=== PATIENT | female | born 1985 | race Caucasian/White ===

== ENCOUNTER 2020-02-27 20:20 | Inpatient (IN) | payer BC ==
[~2020-02-27] VITALS: Ht 170.2 cm; Wt 86.2 kg
[2020-02-27 20:20] VITALS: BP 108/52
[2020-02-27] MEDS ORDERED: BETAMETH ACET/BETAMETH NA PH 30 MG/5 ML VIAL IM ONE (21:15)
[2020-02-27 21:51] LABS: APPEARANCE,URINE SL CLOUDY (CLEAR); BILIRUBIN,URINE NEGATIVE (NEGATIVE); BLOOD, URINE 3+ (NEGATIVE); COLOR,URINE AMBER (YELLOW); LEUKOCYTE ESTERASE ,URINE 1+ (NEGATIVE); NITRITE, URINE NEGATIVE (NEGATIVE); UGLUCOSE NEGATIVE (NEGATIVE)
[2020-02-27 21:56] LABS: BASOPHILS % (AUTO) 0.3 % (0.0-2.0); EOSINOPHILS # (AUTO) 0.1 K/uL (0-0.4); EOSINOPHILS % (AUTO) 1.1 % (0.0-4.0); HEMATOCRIT 34.3 % (36-48); HEMOGLOBIN 11.4 g/dL (12.0-16.0); LYMPHOCYTES # (AUTO) 1.5 K/uL (2.5-16.5); LYMPHOCYTES % (AUTO) 20.4 % (20.5-51.1); MEAN CORPUSCULAR HEMOGLOBIN 31 pg (27-31); MEAN CORPUSCULAR HGB CONC 33 g/dL (33-37); MEAN CORPUSCULAR VOLUME 92.1 fL (80-94); MONOCYTES # (AUTO) 0.5 K/uL (0.8-1.0); MONOCYTES % (AUTO) 6.8 % (1.7-9.3); NEUTROPHILS # (AUTO) 5.4 K/uL (1.8-7.7); NEUTROPHILS % (AUTO) 71.4 % (42.2-75.2); PLATELET COUNT (AUTO) 199 K/uL (140-450); RED BLOOD CELL COUNT(AUTO) 3.73 MIL/uL (4.20-5.40); WHITE BLOOD COUNT (AUTO) 7.6 K/uL (4.8-10.8)
[2020-02-27] MEDS ORDERED: BETAMETH ACET/BETAMETH NA PH 30 MG/5 ML VIAL IM SCH (22:20)
[2020-02-27 22:24] LABS: RBC,URINE 20-50 /HPF (0-5)
[2020-02-27 22:39] LABS: ALBUMIN 2.6 g/dL (3.4-5.0); ANION GAP 13.2 (8-16); CARBON DIOXIDE 26.1 mmol/L (21-32); CREATININE 0.7 mg/dL (0.6-1.3); POTASSIUM 3.3 mmol/L (3.5-5.1); TOTAL BILIRUBIN 0.2 mg/dL (0.0-1.0)
[2020-02-28 00:20] LABS: PROTHROMBIN TIME 9.7 secs (10.8-13.4)
--- NOTE | 2020-02-28 08:21 | NUR ---
PATIENT HAS BEEN SCREENED AND CATEGORIZED LOW NUTRITION RISK. PATIENT WILL BE SEEN WITHIN 7 DAYS OF ADMISSION. 03/05/[address]
[2020-02-28] MEDS ORDERED: PNV11TAB3 PO (23:26)
== END 2020-02-28 12:30 | disposition home or self-care (01) | DRG 833 ==
LOC: OBSVTOIN 20:20 → MLD 20:20
PROVIDERS: ADMIT Obstetrics & Gynecology; ATTEND Obstetrics & Gynecology
DX: O46.92 Antepartum hemorrhage, unspecified, second trimester (principal); Z3A.24 24 weeks gestation of pregnancy
CPT/HCPCS: 36415; 76805; 76817; 80053; 81001; 85025; 85384; 85610; 85730; 86886; 86900; 86901; 87086; J0696; J0702; J7060; Q0092

== ENCOUNTER 2020-02-28 23:03 | Observation (INO) | payer BC ==
[~2020-02-28] VITALS: Ht 170.2 cm; Wt 86.2 kg
[2020-02-28] MEDS ORDERED: BETAMETH ACET/BETAMETH NA PH 30 MG/5 ML VIAL IM SCH (23:15)
[2020-02-28] MEDS ORDERED: BETAMETH ACET/BETAMETH NA PH 30 MG/5 ML VIAL IM ONE (23:19)
[2020-02-28] MEDS ORDERED: PNV11TAB3 PO (23:26)
[2020-02-29 00:14] VITALS: BP 97/54
== END 2020-02-29 00:05 | disposition home or self-care (01) ==
LOC: MLD 23:03
PROVIDERS: ADMIT Obstetrics & Gynecology; ATTEND Obstetrics & Gynecology
DX: O46.92 Antepartum hemorrhage, unspecified, second trimester (principal); Z3A.24 24 weeks gestation of pregnancy
CPT/HCPCS: 96372; G0378; J0702

== ENCOUNTER 2020-07-02 23:35 | Emergency (ER) | payer BC ==
[~2020-07-02] VITALS: Ht 172.7 cm; Wt 81.4 kg
[~2020-07-02 23:35] MED LIST: PNV11TAB3 PO
[2020-07-02 23:45] VITALS: BP 105/63
--- NOTE | 2020-07-03 00:02 | NUR ---
34 Y/O FEMALE BIB SELF FOR C/O FEVER 104.0 AT HOME. PT POST ON 06/20/20 AND HAS 3DEGREE VAGINAL TEAR. PT STATES VAGINAL BURNING PAIN 01/28 AND BEGAN HAVING FEVER TODAY. CURRENT TEMP 100.0 ORAL. PT TOOK ADVIL @ 2130 WITH SOME RELIEF. DENIES N/V, COUGH OR SOB. MEDHX: DENIES NKA
[2020-07-03] MEDS ORDERED: NACL 0.9% 1,000 ML IV ONE (00:05)
--- NOTE | 2020-07-03 00:07 | NUR ---
ERMD AT BEDSIDE EVALUATING PT
[2020-07-03 00:17] LABS: APPEARANCE,URINE SL CLOUDY (CLEAR); BILIRUBIN,URINE NEGATIVE (NEGATIVE); BLOOD, URINE 3+ (NEGATIVE); COLOR,URINE YELLOW (YELLOW); LEUKOCYTE ESTERASE ,URINE 3+ (NEGATIVE); NITRITE, URINE NEGATIVE (NEGATIVE); UGLUCOSE NEGATIVE (NEGATIVE)
--- NOTE | 2020-07-03 00:31 | NUR ---
Pelvic exam performed by DR JIMENEZ with MARIBEL MORALES at bedside for entire examination. Patient tolerated procedure WELL. Patient assisted to position of comfort after examination.
[2020-07-03 00:32] LABS: RBC,URINE 11-20 (MOD) /HPF (0-5); WBC,URINE 60-80 /HPF (0-5)
[2020-07-03] MEDS ORDERED: KETOROLAC 30 MG/ML VIAL IVP ONE (00:35)
[2020-07-03] MEDS ORDERED: cefTRIAXone 1,000 MG VIAL ONE (00:35)
--- NOTE | 2020-07-03 01:38 | NUR ---
rocephin infusion finished. pt VSS. no needs at this time.
--- NOTE | 2020-07-03 02:34 | NUR ---
ULTRASOUND AT BEDSIDE
[2020-07-03 03:27] VITALS: BP 99/52
--- NOTE | 2020-07-03 03:27 | NUR ---
Patient discharged with v/s stable. Written and verbal after care instructions given and explained. Patient alert, oriented and verbalized understanding of instructions. Ambulatory with steady gait. All questions addressed prior to discharge. ID band removed. Patient advised to follow up with PMD. Rx of MACROBID AND MOTRIN given. Patient educated on indication of medication including possible reaction and side effects. Opportunity to ask questions provided and answered.
== END 2020-07-03 03:27 | disposition home or self-care (01) ==
LOC: MED 23:35
DX: R50.9 Fever, unspecified (principal); R10.2 Pelvic and perineal pain; N39.0 Urinary tract infection, site not specified; Z79.899 Other long term (current) drug therapy
CPT/HCPCS: 76856; 81001; 87086; 96365; 96375; 99284; J0696; J1885